=== PATIENT | female | born 1960 | race Caucasian/White ===

== ENCOUNTER 2021-04-12 20:30 | Emergency (ER) | payer MEDICAID ==
[~2021-04-12] VITALS: Ht 167.6 cm; Wt 98.4 kg
[2021-04-12 21:45] VITALS: BP_SYST 194
--- NOTE | 2021-04-12 22:43 | NUR ---
PT ARRIVED TO ER FOR RIGHT SIDED KIDNEY PAIN. PT HAS A HX OF KIDNEY DISEASE. PT STATES PAIN HAS BEEN GOING ON FOR A FEW WEEKS. STATES 7/10 PAIN TO THE RIGHT SIDE. [id number].
[2021-04-12] MEDS ORDERED: MORPHINE 4 MG INJ. 4 MG/ML VIAL IVP ONE (23:15)
[2021-04-12] MEDS ORDERED: NACL 0.9% 1,000 ML IV ONE (23:15)
[2021-04-12] MEDS ORDERED: ONDANSETRON HCL 4 MG/2 ML VIAL IVP ONE (23:15)
--- NOTE | 2021-04-12 23:57 | NUR ---
PT PLACED ON GURNEY, CHANGED INTO GOWN, PLACED ON BEDSIDE MONITOR. IV LINE ESTABLISHED, LABS DRAWN AND TAKEN TO LAB. PT UNABLE TO GIVE URINE SPECIMEN AT THIS TIME. MEDICATED WITH MEDS ORDERED.
--- NOTE | 2021-04-13 00:15 | NUR ---
DR DEL REAL AT BEDSIDE ASSESSING PT
[2021-04-13 00:46] LABS: CALCIUM 8.7 mg/dL (8.4-11.0); CREATININE 1.37 mg/dL (0.55-1.30); POTASSIUM 3.8 mmol/L (3.5-5.1)
[2021-04-13 00:53] LABS: ALBUMIN 3.3 g/dL (3.4-4.8)
[2021-04-13 00:55] LABS: BASOPHILS # (AUTO) 0.1 K/uL (0.0-0.2); EOSINOPHILS # (AUTO) 0.3 K/uL (0.0-0.4); EOSINOPHILS % (AUTO) 3.3 % (0.0-4.0); HEMATOCRIT 36.6 % (36-48); HEMOGLOBIN 12.2 g/dL (12.0-16.0); LYMPHOCYTES # (AUTO) 2.4 K/uL (1.0-5.5); LYMPHOCYTES % (AUTO) 25.9 % (20.5-51.5); MEAN CORPUSCULAR HEMOGLOBIN 30 pg (27-31); MEAN CORPUSCULAR HGB CONC 33 % (32-36); MEAN CORPUSCULAR VOLUME 89 fL (79.0-98.0); MONOCYTES # (AUTO) 0.6 K/uL (0.0-1.0); MONOCYTES % (AUTO) 6.8 % (1.7-9.3); NEUTROPHILS # (AUTO) 5.8 K/uL (1.8-7.7); PLATELET COUNT (AUTO) 291 K/uL (130-430); RED BLOOD CELL COUNT(AUTO) 4.11 MIL/uL (4.2-6.2); WHITE BLOOD COUNT (AUTO) 9.1 K/uL (4.8-10.8)
[2021-04-13 01:17] LABS: TOTAL BILIRUBIN 0.2 mg/dL (0.0-1.0)
--- NOTE | 2021-04-13 01:28 | NUR ---
PT RESTING MORE COMFORTABLY AT THIS TIME, REMAINS ON MONITOR. WILL CONTINUE TO WATCH B/P. I/V FLUID STILL INFUSING
--- NOTE | 2021-04-13 02:50 | NUR ---
STILL UNABLE TO PROVIDE UA
[2021-04-13] MEDS ORDERED: HYDROcodone/ACETAMIN 5-325 MG TAB (NORCO/ VICODIN) ONE (02:54)
[2021-04-13] MEDS ORDERED: HYDROcodone/ACETAMIN 5-325 MG TAB (NORCO/ VICODIN) PO ONE (03:30)
--- NOTE | 2021-04-13 03:42 | NUR ---
IN AND OUT CATH DONE AND URINE TAKEN TO LAB
[2021-04-13 04:39] LABS: BILIRUBIN,URINE NEGATIVE (NEGATIVE); CLARITY/URINE CLEAR (CLEAR); COLOR,URINE YELLOW (YELLOW); GLUCOSE,URINE NEGATIVE (NEGATIVE); KETONES,URINE NEGATIVE (NEGATIVE); PROTEIN URINE TRACE (NEGATIVE)
[2021-04-13 04:40] LABS: BLOOD, URINE NEGATIVE (NEGATIVE); LEUKOCYTE ESTERASE ,URINE NEGATIVE (NEGATIVE); NITRITE, URINE NEGATIVE (NEGATIVE); UROBILINOGEN,URINE 0.2 (0.2-1.0)
--- NOTE | 2021-04-13 04:50 | NUR ---
AWARE OF ELEVATED B/P, NEW ORDERS RECEIVED
[2021-04-13] MEDS ORDERED: amLODIPine BESYLATE 5 MG TABLET ONE (04:53)
--- NOTE | 2021-04-13 04:55 | NUR ---
PAIN TO FLANK IS BETTER. REMAINS ON BEDSIDE MONITOR WILL CONTINUE TO ASSESS AFTER B/P MEDS GIVEN. PT RESTING COMFORTABLY AT THIS TIME
[2021-04-13] MEDS ORDERED: amLODIPine BESYLATE 5 MG TABLET PO ONE (05:00)
[2021-04-13] MEDS ORDERED: HYDR-3917 PO (05:02)
[2021-04-13] MEDS ORDERED: AMLO5TAB4 PO (05:02)
--- NOTE | 2021-04-13 05:27 | NUR ---
PT'S B/P IS BETTER, 164/95, CALLED [facility] TO LET HER KNOW PT IS READY FOR D/C. SISTER LIVES IN [place] AND WILL BE HERE IN ABOUT 1 HR TO PICK HER UP.
[2021-04-13 06:47] VITALS: BP_SYST 162
--- NOTE | 2021-04-13 06:47 | NUR ---
Patient given written and verbal discharge instructions and verbalizes understanding. ER MD discussed with patient the results and treatment provided. Patient in stable condition. ID arm band removed. IV catheter removed intact and dressing applied, no active bleeding. Rx of norvasc norco given. Patient educated on pain management and to follow up with PMD. Pain Scale . Opportunity for questions provided and answered. Medication side effect fact sheet provided.
== END 2021-04-13 06:47 | disposition home or self-care (01) ==
LOC: SED 20:30
DX: R10.9 Unspecified abdominal pain (principal); N28.9 Disorder of kidney and ureter, unspecified; I10 Essential (primary) hypertension; Z79.899 Other long term (current) drug therapy
CPT/HCPCS: 36415; 74176; 76376; 80053; 81003; 83690; 85025; 96361; 96374; 96375; 99284; J2270; J2405; J7030